=== PATIENT | female | born 1970 | race African-American/Black ===

== ENCOUNTER 2016-09-11 06:17 | Emergency (ER) | payer OTHER ==
[~2016-09-11] VITALS: Ht 165.1 cm; Wt 68.0 kg
[2016-09-11 07:25] VITALS: BP 116/74
--- NOTE | 2016-09-11 07:26 | NUR ---
Patient discharged to home in stable condition. Written and verbal after care instructions given. Patient verbalizes understanding of instruction.
== END 2016-09-11 07:27 | disposition home or self-care (01) ==
LOC: ER 06:21
DX: J30.2 Other seasonal allergic rhinitis (principal); R09.82 Postnasal drip; F41.9 Anxiety disorder, unspecified
CPT/HCPCS: 71010; 99283; A4606; Z7610